=== PATIENT | female | born 1980 | race American Indian/Alaskan Native ===

== ENCOUNTER 2019-06-27 15:27 | Emergency (ER) | payer SELFPAY ==
[2019-06-27] MEDS ORDERED: ZOFRAN IV ONE ×3 (15:33→19:43)
[2019-06-27] MEDS ORDERED: MORPHINE IV ONE ×2 (15:33→15:37)
[2019-06-27] MEDS ORDERED: DILAUDID IV ONE ×2 (15:41→17:56)
--- NOTE | 2019-06-27 15:41 | Emergency Department Report ---
ED Abdominal Pain HPI - General Stated Complaint: CHEST PAIN Time Seen by Provider: 06/27/19 15:30 Source: patient, family - History of Present Illness Initial Comments: Patient is 39 years old female with history of gastric sleeves 2 years ago. Patient presented to the ER with sudden onset of right upper quadrant pain, 10 out of 10 with no radiation. Patient also complaining of shortness of breath and stated that pain increases with inspiration. denied any fever or chills. No nausea or vomiting. Patient denied any left sided chest pain. MD Complaint: abdominal pain Location: RUQ Severity: severe Severity scale (0 -10): 10 Quality: sharp Consistency: constant - Related Data Previous Rx's Medication Instructions Recorded Last Taken Type Famotidine [Pepcid] 20 mg PO BID #60 tablet 06/27/19 Unknown Rx Ondansetron [Zofran Odt] 4 mg PO Q8HR #20 tab.rapdis 06/27/19 Unknown Rx traMADol [Ultram] 50 mg PO Q6HR PRN #20 tablet 06/27/19 Unknown Rx Allergies Allergy/AdvReac Type Severity Reaction Status Date / Time No Known Allergies Allergy Unverified 03/08/15 12:24 ED Review of Systems ROS: Stated complaint: CHEST PAIN Other details as noted in HPI Comment: All other systems reviewed and negative Constitutional: denies: chills, fever Respiratory: shortness of breath. denies: cough, SOB with exertion, SOB at rest, wheezing Cardiovascular: chest pain. denies: palpitations Gastrointestinal: abdominal pain. denies: nausea, vomiting, diarrhea, constipation, hematemesis, melena, hematochezia Musculoskeletal: denies: back pain Neurological: denies: headache, weakness ED Past Medical Hx - Medications Home Medications: Home Medications Medication Instructions Recorded Confirmed Last Taken Type Famotidine [Pepcid] 20 mg PO BID #60 tablet 06/27/19 Unknown Rx Ondansetron [Zofran Odt] 4 mg PO Q8HR #20 tab.rapdis 06/27/19 Unknown Rx traMADol [Ultram] 50 mg PO Q6HR PRN #20 tablet 06/27/19 Unknown Rx ED Physical Exam - General General appearance: alert, in no apparent distress - Head Head exam: Present: atraumatic, normocephalic, normal inspection - Eye Eye exam: Present: normal appearance - ENT ENT exam: Present: normal exam, normal orophraynx, mucous membranes moist - Neck Neck exam: Present: normal inspection, full ROM. Absent: tenderness, meningismus, lymphadenopathy, thyromegaly - Respiratory Respiratory exam: Present: normal lung sounds bilaterally - Cardiovascular Cardiovascular Exam: Present: regular rate, normal rhythm, normal heart sounds - GI/Abdominal GI/Abdominal exam: Present: soft, distended (right upper quadrant tenderness), normal bowel sounds. Absent: tenderness, guarding, rebound, rigid, o rganomegaly, mass, bruit, pulsatile mass, hernia - Extremities Exam Extremities exam: Present: normal inspection, full ROM, normal capillary refill. Absent: tenderness, pedal edema, calf tenderness - Back Exam Back exam: Present: normal inspection, full ROM. Absent: CVA tenderness (R), CVA tenderness (L), muscle spasm, paraspinal tenderness - Neurological Exam Neurological exam: Present: alert, oriented X3, CN II-XII intact, normal gait, reflexes normal - Skin Skin exam: Present: warm, intact, normal color ED Course Vital Signs 06/27/19 06/27/19 06/27/19 15:30 16:13 18:31 Temperature 98 F Pulse Rate 47 L 47 L 57 L Respiratory 22 18 18 Rate Blood Pressure 149/88 Blood Pressure 138/71 118/73 [Right] O2 Sat by Pulse 97 98 99 Oximetry 06/27/19 20:51 Temperature Pulse Rate 56 L Respiratory 16 Rate Blood Pressure Blood Pressure 117/64 [Right] O2 Sat by Pulse 100 Oximetry ED Medical Decision Making - Lab Data Result diagrams: 06/27/19 16:04 06/27/19 16:04 - Medical Decision Making Patient is 39 years old female with history of gastric sleeves 2 years ago. Patient presented to the ER with sudden onset of right upper quadrant pain, 10 out of 10 with no radiation. Patient also complaining of shortness of breath and stated that pain increases with inspiration. denied any fever or chills. No nausea or vomiting. Patient denied any left sided chest pain. Patient care transferred to Dr. Mcdonald at 6 PM. Critical care attestation.: If time is entered above; I have spent that time in minutes in the direct care of this critically ill patient, excluding procedure time. ED Disposition Clinical Impression: Abdominal pain, Vomiting Disposition: DC-01 TO HOME OR SELFCARE Is pt being admited?: No Condition: Stable Instructions: Abdominal Pain (ED) Prescriptions: Famotidine [Pepcid] 20 mg PO BID #60 tablet traMADol [Ultram] 50 mg PO Q6HR PRN #20 tablet PRN Reason: Pain Ondansetron [Zofran Odt] 4 mg PO Q8HR #20 tab.rapdis Referrals: PEDRITO THORNE MD [Staff Physician] - 3-5 Days PRIMARY CARE, [Primary Care Provider] - 3-5 Days
[2019-06-27 16:23] LABS: Basophils % (Auto) 0.3 % (0.0-1.8); Eosinophils # (Auto) 0.1 K/mm3 (0.0-0.4); Eosinophils % (Auto) 0.8 % (0.0-4.3); Hematocrit 38.9 % (30.3-42.9); Hemoglobin 12.1 gm/dl (10.1-14.3); Lymphocytes # (Auto) 0.7 K/mm3 (1.2-5.4); Lymphocytes % (Auto) 8.5 % (13.4-35.0); Mean Corpuscular HGB Conc 31 % (30-34); Monocytes # (Auto) 0.6 K/mm3 (0.0-0.8); Monocytes % (Auto) 7.8 % (0.0-7.3); Platelet Count 233 K/mm3 (140-440); Red Blood Count 5.79 M/mm3 (3.65-5.03); Red Cell Distribution Width 16.3 % (13.2-15.2)
[2019-06-27 16:25] LABS: Mean Corpuscular Volume 67 fl (79-97)
[2019-06-27 16:32] LABS: INR 1.09 (0.87-1.13)
[2019-06-27 16:33] LABS: Partial Thromboplastin Time 25.8 Sec. (24.2-36.6)
--- NOTE | 2019-06-27 16:52 | Ultrasound Report ---
ULTRASOUND ABDOMEN, LIMITED (RIGHT UPPER QUADRANT) INDICATION / CLINICAL INFORMATION: right upper quadrant pain. COMPARISON: None available. FINDINGS: PANCREAS: Visualized portion shows no significant abnormality. LIVER: No significant abnormality. GALLBLADDER: Not seen. BILE DUCTS: No significant abnormality. Common bile duct measures 4 mm. FREE FLUID: None. ADDITIONAL FINDINGS: No aneurysm in the visualized abdominal aorta. Visualized IVC is unremarkable. T he right kidney appears normal. IMPRESSION: 1. Nonvisualization of the gallbladder. Otherwise, unremarkable exam. Signer Name: Chetan Raymundo MD Signed: 06/27/2019 4:48 PM Workstation Name: [id number]
[2019-06-27 17:28] LABS: Alanine Aminotransferase 166 units/L (7-56); Albumin 4.3 g/dL (3.9-5); BUN/Creatinine Ratio 24; Blood Urea Nitrogen 17 mg/dL (7-17); Calcium 9.3 mg/dL (8.4-10.2); Hemolysis Index 3
--- NOTE | 2019-06-27 17:58 | XRay Report ---
CHEST 1 VIEW INDICATION / CLINICAL INFORMATION: chest pain. COMPARISON: 08/27/2008 FINDINGS: SUPPORT DEVICES: None. HEART / MEDIASTINUM: No significant abnormality. LUNGS / PLEURA: No significant pulmonary or pleural abnormality. No pneumothorax. ADDITIONAL FINDINGS: No significant additional findings. IMPRESSION: 1. No significant change Signer Name: Jose Armando Cruz MD Signed: 06/27/2019 5:54 PM Workstation Name: [id number]
[2019-06-27 18:04] LABS: Bilirubin,Urine NEG (Negative); Blood,Urine SM (Negative); Color,Urine Yellow (Yellow); Mucus,Urine FEW /HPF; Urobilinogen,Urine < 2.0 mg/dL (<2.0)
[2019-06-27 18:08] LABS: Bilirubin,Direct < 0.2 mg/dL (0-0.2)
--- NOTE | 2019-06-27 19:14 | Nuclear Medicine Report ---
Ventilation/perfusion scan of the lungs INDICATION: Chest pain and shortness of breath TECHNIQUE: The patient was administered 5 mCi of technetium 99 MAA for the perfusion phase of the parvin dy and 16.2 mCi of xenon-133 for the ventilation phase FINDINGS: Ventilation phase shows minimal air trapping at the medial left lung base. The perfusion ph ase shows no focal segmental or subsegmental perfusion defects and there is no evidence of pulmonary embolus. Signer Name: Jose Armando Cruz MD Signed: 06/27/2019 7:09 PM Workstation Name: [id number]
--- NOTE | 2019-06-27 19:27 | Cat Scan Report ---
CT of the abdomen and pelvis with contrast INDICATION: Abdominal pain COMPARISON: None FINDINGS: Lung bases are clear. There is moderate cardiomegaly. Gallbladder has been removed. No bili ilene tree dilation. There is mild periportal edema which is nonspecific. There has been gastric surger y. The spleen, pancreas, adrenal glands and kidneys show no abnormalities. There is abnormal soft tis velvet posterior and lateral to the liver of uncertain etiology. I could not exclude peritoneal carcinom atosis. No ascites is seen. No adenopathy is present in the upper abdomen. There is a large lipoma ov er the lower right posterior back measuring [address] of the pelvis shows no uterine or adnexal masses. There is no pelvic or inguinal adenopathy. No rianna wel obstruction is seen. Appendix is seen and is normal. Fixation screw is seen in the left hip. IMPRESSION: Abnormal soft tissue in the right peritoneal cavity. This is nonspecific and is of uncert ain chronicity. Otherwise no significant abnormality. Automated exposure control was utilized to diminish radiation dose. Signer Name: Jose Armando Cruz MD Signed: 06/27/2019 7:23 PM Workstation Name: [id number]
--- NOTE | 2019-06-27 20:48 | Event Note ---
Date: 06/27/19 Patient has improved with Zofran therapy. Patient has low probability for PE on VQ scan. Patient's CT shows no acute pathology patient to be discharged with Zofran and Pepcid therapy to take as an outpatient.
[2019-06-27 20:52] VITALS: BP 117/64
== END 2019-06-27 21:45 | disposition home or self-care (01) ==
LOC: ED 15:27
DX: R10.11 Right upper quadrant pain (principal); R11.10 Vomiting, unspecified; R06.02 Shortness of breath; Z98.84 Bariatric surgery status; Z79.899 Other long term (current) drug therapy
CPT/HCPCS: 36415; 71045; 74177; 76705; 78582; 80048; 80076; 81001; 83690; 85025; 85379; 85610; 85730; 87086; 96374; 96375; 96376; 99285; A9540; A9558; J1170; J2270; J2405; Q9967